=== PATIENT | female | born 1965 | race Two or more races ===

== ENCOUNTER 2017-12-18 22:38 | Emergency (ER) | payer MEDICAID ==
[~2017-12-18] VITALS: Ht 157.5 cm; Wt 89.4 kg
[~2017-12-18 22:38] MED LIST: IBUPROFEN600 MG ORAL; NAPROSYN500 M1 ORAL; NKM; NORCO 5-325 TA1 EACH ORAL; OMEPRAZOLE40 M1 ORAL; PREDNISONE20 MG ORAL; RANITIDINE HCL150 MG ORAL; VOLTAREN100 G1 TP
[2017-12-18 23:10] VITALS: BP 95/55
[2017-12-18] MEDS ORDERED: Norco 5mg/325mg tab ORAL ONE (23:15)
[2017-12-18] MEDS ORDERED: PREDNISONE20 MG ORAL (23:18)
[2017-12-18] MEDS ORDERED: HYDROCODON-ACE1 EA15 ORAL (23:18)
[2017-12-18] MEDS ORDERED: IBUPROFEN600 MG ORAL (23:18)
--- NOTE | 2017-12-18 23:18 | Emergency Room Report ---
History of Present Illness General Chief Complaint: Neck Pain Source: Patient Present Illness HPI Is a 52-year-old female with no significant past medical history. She has a history of chronic neck pain and the last week or so complaining neck pain with left arm numbness. She had an MRI done earlier today. He has not been read yet. Because of her numbness her doctor told to go to the ER. Pain is 9 out of 10. Worse with movement of her neck. No fever chills but no focal deficit. No focal deficit. No incontinence of bowel or urine. No fever chills but no trauma. Allergies: Coded Allergies: No Known Allergies (Unverified , 09/08/13) Patient History Past Medical History: see triage record, old chart reviewed Past Surgical History: other Pertinent Family History: none Social History: Denies: smoking Last Menstrual Period: unk Now: No Immunizations: other Reviewed Nursing Documentation: PMH: Agreed; PSxH: Agreed Nursing Documentation-PMH Hx Diabetes: Yes Review of Systems Eye: Denies: eye pain, blurred vision ENT: Denies: ear pain, nose congestion, throat swelling Respiratory: Denies: cough, shortness of breath Cardiovascular: Denies: chest pain, palpitations Gastrointestinal: Denies: abdominal pain, diarrhea, nausea, vomiting Musculoskeletal: Denies: back pain, joint pain Skin: Denies: rash Neurological: Denies: headache, numbness Endocrine: Denies: increased thirst, increased urine Hematologic/Lymphatic: Denies: easy bruising All Other Systems: negative except mentioned in HPI Physical Exam Vital Signs Date Time Temp Pulse Resp B/P (MAP) Pulse Ox O2 Delivery O2 Flow Rate FiO2 12/18/17 22:47 97.9 76 18 95/55 98 Room Air 97.9 vitals unremarkable Sp02 EP Interpretation: reviewed, normal General Appearance: well appearing, no apparent distress, alert Head: normocephalic, atraumatic Eyes: bilateral eye PERRL, bilateral eye EOMI ENT: hearing grossly normal, normal pharynx Neck: full range of motion, supple, no meningismus Respiratory: chest non-tender, lungs clear, normal breath sounds Cardiovascular #1: regular rate, rhythm, no murmur Gastrointestinal: normal bowel sounds, non tender, no mass, no organomegaly, no bruit, non-distended Musculoskeletal: back normal, gait/station normal, normal range of motion Psychiatric: mood/affect normal Skin: warm/dry Medical Decision Making Diagnostic Impression: Primary Impression: Cervical radiculopathy, acute ER Course Patient with cervical radiculopathy and paresthesia. We'll put her on a course of steroid and pain medication. She will need a referral to see a marketing data specialist. She may need surgical evaluation but nothing emergent in the ER. No evidence of cauda equina syndrome, spinal epidural abscess or neoplastic process. Last Vital Signs Date Time Temp Pulse Resp B/P (MAP) Pulse Ox O2 Delivery O2 Flow Rate FiO2 12/18/17 23:14 97.9 12/18/17 22:47 76 18 95/55 98 Room Air Status: unchanged Disposition: HOME, SELF-CARE Condition: Stable Scripts Prednisone* (PREDNISONE*) 20 Mg Tablet 60 MG ORAL DAILY, #12 TAB Prov: ROSALIO COOK M.D. 12/18/17 Ibuprofen* (MOTRIN*) 600 Mg Tablet 600 MG ORAL THREE TIMES A DAY, #30 TAB 0 Refills Prov: ROSALIO COOK M.D. 12/18/17 Hydrocodone/Acetaminophen 5-325* (HYDROCODONE/ACETAMINOPHEN 5-325*) 1 Each Tablet 1 TAB ORAL Q6H PRN for For Pain, #20 TAB 0 Refills Prov: ROSALIO COOK M.D. 12/18/17 Additional Instructions: Follow-up with your doctor in a week. Give report of MRI to your doctor. You may need a referral to see a marketing data specialist. Return if symptom worsen. ROSALIO COOK M.D. Dec 18, 2017 23:18
[2017-12-18 23:24] VITALS: BP 95/55
== END 2017-12-18 23:24 | disposition home or self-care (01) ==
LOC: EMR 23:08
DX: M54.12 Radiculopathy, cervical region (principal); R20.2 Paresthesia of skin; M54.2 Cervicalgia; E11.9 Type 2 diabetes mellitus without complications
CPT/HCPCS: 99283; J7512

== ENCOUNTER 2018-01-20 23:18 | Emergency (ER) | payer MEDICAID ==
[~2018-01-20] VITALS: Ht 157.5 cm; Wt 81.2 kg
[~2018-01-20 23:18] MED LIST changes: +HYDROCODON-ACE1 EA15 ORAL
[2018-01-20 23:45] VITALS: BP 123/74
[2018-01-21 00:16] VITALS: BP 123/74
[2018-01-21 00:22] LABS: APPEARANCE,URINE CLEAR; BILIRUBIN, URINE NEGATIVE (NEGATIVE); COLOR,URINE PALE YELLOW; GLUCOSE, URINE (UA) NEGATIVE (NEGATIVE); KETONES,URINE NEGATIVE (NEGATIVE); LEUKOCYTE ESTERASE ,URINE NEGATIVE (NEGATIVE); NITRITE,URINE NEGATIVE (NEGATIVE); PH,URINE 5 (4.5-8.0); PROTEIN,URINE NEGATIVE (NEGATIVE); UROBILINOGEN,URINE NORMAL MG/DL (0.0-1.0)
[2018-01-21 00:26] LABS: EOSINOPHILS % (AUTO) 2.6 % (0.0-3.0); HEMOGLOBIN 14.2 G/DL (12.0-16.0); MEAN CORPUSCULAR VOLUME 82 FL (80-99); MONOCYTES % (AUTO) 7.5 % (1.0-10.0); NEUTROPHILS % (AUTO) 49.9 % (45.0-75.0); PLATELET COUNT 205 K/UL (150-450); RED BLOOD COUNT 5.15 M/UL (4.20-5.40); RED CELL DISTRIBUTION WIDTH 12.2 % (11.6-14.8); WHITE BLOOD COUNT 6.8 K/UL (4.8-10.8)
[2018-01-21 00:35] LABS: ANION GAP 10 mmol/L (5-15); BLOOD UREA NITROGEN 19 mg/dL (7-18); CALCIUM 9.6 MG/DL (8.5-10.1); CARBON DIOXIDE 27 MMOL/L (21-32); CHLORIDE 102 MMOL/L (98-107); CREATININE 0.8 MG/DL (0.55-1.30); POTASSIUM 3.6 MMOL/L (3.5-5.1); SODIUM 139 MMOL/L (136-145)
[2018-01-21 00:39] LABS: ALANINE AMINOTRANSFERASE 27 U/L (12-78); ALKALINE PHOSPHATASE 80 U/L (46-116); ASPARTATE AMINO TRANSFERASE 16 U/L (15-37); BILIRUBIN,TOTAL 0.3 MG/DL (0.2-1.0)
[2018-01-21 01:36] VITALS: BP 112/78
[2018-01-21] MEDS ORDERED: Ketorolac 30mg Inj IV ONE (01:45)
[2018-01-21] MEDS ORDERED: Morphine Sulfate 4mg/ml Inj (IV/IM USE ONLY) IVP ONE ×2 (01:45)
[2018-01-21] MEDS ORDERED: Ketorolac 30mg Inj ONE (01:46)
[2018-01-21] MEDS ORDERED: IBUPROFEN600 MG ORAL (01:53)
--- NOTE | 2018-01-21 01:53 | Emergency Room Report ---
History of Present Illness General Chief Complaint: Abdominal Pain Source: Patient Present Illness HPI Is a 52-year-old female with history of diabetes and thyroid cancer status post thyroidectomy. She presents with chief complaint abdominal pain and bloating. Onset today. No nausea no vomiting. Pain is mostly in the left upper quadrant area and radiate to the back and front. No fever chills but no nausea no vomiting. No diarrhea. Pain is 8 out of 10. [place] spasming in nature. Comes and go. Never had this problem before. No rash. Allergies: Coded Allergies: No Known Allergies (Unverified , 09/08/13) Patient History Past Medical History: see triage record, old chart reviewed, DM, other - thyroid cancer Past Surgical History: other - thyroidectomy Pertinent Family History: none Social History: Denies: smoking Last Menstrual Period: 01/17/18 Now: No : 5 Para: 2 Immunizations: other Reviewed Nursing Documentation: PMH: Agreed; PSxH: Agreed Nursing Documentation-PMH Past Medical History: No History, Except For Hx Diabetes: Yes Hx Cancer: Yes - thyroid Review of Systems Eye: Denies: eye pain, blurred vision ENT: Denies: ear pain, nose congestion, throat swelling Respiratory: Denies: cough, shortness of breath Cardiovascular: Denies: chest pain, palpitations Gastrointestinal: Reports: abdominal pain; Denies: diarrhea, nausea, vomiting Musculoskeletal: Denies: back pain, joint pain Skin: Denies: rash Neurological: Denies: headache, numbness Endocrine: Denies: increased thirst, increased urine Hematologic/Lymphatic: Denies: easy bruising All Other Systems: negative except mentioned in HPI Physical Exam Vital Signs Date Time Temp Pulse Resp B/P (MAP) Pulse Ox O2 Delivery O2 Flow Rate FiO2 01/20/18 23:33 97.9 60 16 128/82 99 Room Air 97.9 vitals normal Sp02 EP Interpretation: reviewed, normal General Appearance: well appearing, no apparent distress, alert Head: normocephalic, atraumatic Eyes: bilateral eye PERRL, bilateral eye EOMI ENT: hearing grossly normal, normal pharynx Neck: full range of motion, supple, no meningismus Respiratory: chest non-tender, lungs clear, normal breath sounds Cardiovascular #1: regular rate, rhythm, no murmur Gastrointestinal: normal bowel sounds, no mass, no organomegaly, no bruit, non- distended, tenderness - mild tenderness to the left upper quadrant Musculoskeletal: back normal, gait/station normal, normal range of motion Psychiatric: mood/affect normal Skin: warm/dry Medical Decision Making Diagnostic Impression: Primary Impression: Abdominal pain Qualified Codes: R10.12 - Left upper quadrant pain Additional Impression: Pulmonary nodules ER Course Patient with abdominal pain. I do not see any rash indicate shingles. This could be radicular pain from her back. CT scan showed question of mild pericholecystic inflammatory changes. Labs/LFTs are normal. No evidence of any right upper quadrant pain. We'll have patient follow-up on the pulmonary nodules. No evidence of infection in the lung. She has no cough or congestion. No evidence of acute abdomen. We'll discharge home. Lab Results Impression labs normal CT/MRI/US Diagnostic Results CT/MRI/US Diagnostic Results : Imaging Test Ordered: CT abdomen and pelvis Impression Read by radiologist. Questionable mild pericholecystic inflammatory changes. No gallstones seen on CT. Pulmonary nodules. Appendix is normal. Last Vital Signs Date Time Temp Pulse Resp B/P (MAP) Pulse Ox O2 Delivery O2 Flow Rate FiO2 01/21/18 01:47 97.6 01/21/18 01:36 57 23 112/78 100 Room Air Status: improved Disposition: HOME, SELF-CARE Condition: Stable Scripts Ibuprofen* (MOTRIN*) 600 Mg Tablet 600 MG ORAL THREE TIMES A DAY, #30 TAB 0 Refills Prov: Blake Rossi MD 01/21/18 Referrals: [facility],REFERRING (PCP) Patient Instructions: Abdominal Pain, Adult Additional Instructions: Follow-up with your DrJeni in 2-3 days of not better. Return if symptom worsen. You have pulmonary nodules. This is a nonspecific finding. Will need follow- up in the future with your primary care doctor. Blake Rossi MD Jan 21, 2018 01:53
[2018-01-21 02:00] VITALS: BP 102/53
--- NOTE | 2018-01-21 09:37 | Diagnostic Imaging Report ---
Indication: Abdominal pain Technique: Continuous helical transaxial imaging of the abdomen and pelvis was obtained from the lung bases to the pubic symphysis. No intravenous contrast was administered. Coronal 2-D reformats were also obtained. Automatic Exposure Control was utilized. Total Dose length Product (DLP): 1030.[address] Dose Index Volume (CTDIvol): 19.28 mGy Comparison: none Findings: The lung bases are clear. No gallstones are identified. There is no definite inflammation identified in the pericholecystic region although the preliminary report suggested this possibility. Please correlate clinically and obtain ultrasound if needed for further evaluation. The appendix is normal. Minimal mural calcification of the aorta demonstrated. There is no nephrolithiasis or hydronephrosis identified. The bladder is unremarkable. Intrauterine device noted. IMPRESSION: No acute findings appreciated. IUD. Preliminary reading by statrad suggest the possibility of cholecystitis. Please correlate clinically. Evaluation with ultrasound may be of benefit as warranted clinically. The CT scanner at [facility] is accredited by the [employer] and the scans are performed using dose optimization techniques as appropriate to a performed exam including Automatic Exposure control.
== END 2018-01-21 02:00 | disposition home or self-care (01) ==
LOC: EMR 23:29
DX: R10.12 Left upper quadrant pain (principal); R91.8 Other nonspecific abnormal finding of lung field; E11.9 Type 2 diabetes mellitus without complications; Z85.850 Personal history of malignant neoplasm of thyroid
CPT/HCPCS: 36415; 74176; 80053; 81003; 83690; 85025; 96361; 96374; 96375; 96376; 99284; J1885; J2270; J2405

== ENCOUNTER 2018-10-28 13:03 | Outpatient (CLI) | payer MEDICAID ==
[~2018-10-28 13:03] MED LIST changes: +LEVOTHYROXINE125 MCG ORAL
[2018-10-28 13:30] VITALS: BP 98/66
--- NOTE | 2018-10-28 13:53 | General Progress Note ---
Assessment/Plan Problem List: (1) Colon polyps ICD Codes: K63.5 - Polyp of colon SNOMED: 58250722 Assessment/Plan: plan repeat colonoscopy in 5 years Subjective ROS Limited/Unobtainable: Yes Allergies: Coded Allergies: No Known Allergies (Unverified , 09/08/13) Objective General Appearance: alert EENT: normal ENT inspection Neck: supple Cardiovascular: normal peripheral pulses Respiratory/Chest: decreased breath sounds Abdomen: normal bowel sounds, non tender, soft Extremities: non-tender Sanjeev Padron MD Oct 28, 2018 13:53
== END 2018-10-28 15:38 | disposition home or self-care (01) ==
LOC: PAN 13:03
DX: K63.5 Polyp of colon (principal)
CPT/HCPCS: 99212

== ENCOUNTER 2019-04-18 02:37 | Emergency (ER) | payer MEDICAID ==
[~2019-04-18] VITALS: Ht 160 cm; Wt 86.2 kg
[2019-04-18 03:05] VITALS: BP 120/79
[2019-04-18] MEDS ORDERED: LACTULOSE20 GM/301 ORAL (03:05)
--- NOTE | 2019-04-18 03:05 | NUR ---
ED Nurse Note: Patient walked in to ER c/o constipation x 3-4 days. Patient prsesnted anxious, crying, AAO x4, VSS at this time.
--- NOTE | 2019-04-18 03:07 | Emergency Room Report ---
History of Present Illness General Chief Complaint: Constipation Source: Patient Present Illness HPI This is a 54-year-old female with history of diabetes and thyroid cancer status post thyroidectomy. She presents with complaint of constipation. Started around 7 PM. She had a small bowel movement this morning. She felt the urge to go have a bowel movement but cannot get it out. She says is very hard stool there. No fever chills. No nausea no vomiting. Pain with urge to have bowel movement. Localized to the rectal area. Similar symptom in the past. No recent pain medication. Allergies: Coded Allergies: No Known Allergies (Unverified , 09/08/13) Patient History Past Medical History: see triage record, old chart reviewed, DM Past Surgical History: other Pertinent Family History: none Social History: Denies: smoking Now: No Immunizations: other Reviewed Nursing Documentation: PMH: Agreed; PSxH: Agreed Nursing Documentation-PMH Past Medical History: No History, Except For Hx Diabetes: Yes Hx Cancer: Yes - thyroid CA Hx Gastrointestinal Problems: Yes Hx Neurological Problems: Yes - Hypothyroidism Review of Systems Eye: Denies: eye pain, blurred vision ENT: Denies: ear pain, nose congestion, throat swelling Respiratory: Denies: cough, shortness of breath Cardiovascular: Denies: chest pain, palpitations Gastrointestinal: Reports: constipation; Denies: abdominal pain, diarrhea, nausea, vomiting Musculoskeletal: Denies: back pain, joint pain Skin: Denies: rash Neurological: Denies: headache, numbness Endocrine: Denies: increased thirst, increased urine Hematologic/Lymphatic: Denies: easy bruising All Other Systems: negative except mentioned in HPI Physical Exam Vital Signs Date Time Temp Pulse Resp B/P (MAP) Pulse Ox O2 Delivery O2 Flow Rate FiO2 04/18/19 02:46 97.7 76 18 120/79 (93) 97 Room Air Vitals normal Sp02 EP Interpretation: reviewed, normal General Appearance: well appearing, no apparent distress, alert Head: normocephalic, atraumatic Eyes: bilateral eye PERRL, bilateral eye EOMI ENT: hearing grossly normal, normal pharynx Neck: full range of motion, supple, no meningismus Respiratory: chest non-tender, lungs clear, normal breath sounds Cardiovascular #1: regular rate, rhythm, no murmur Gastrointestinal: normal bowel sounds, non tender, no mass, no organomegaly, no bruit, non-distended Rectal: other - Large stool in the rectal vault Musculoskeletal: back normal, normal range of motion, gait/station normal Psychiatric: mood/affect normal Medical Decision Making Diagnostic Impression: Primary Impression: Constipation Qualified Codes: K59.00 - Constipation, unspecified ER Course Patient presents with constipation. I tried disimpaction but patient would not tolerate it. I gave her a Fleet enema. She has several large BMs. No evidence of any obstruction or acute abdomen. Will discharge home. Last Vital Signs Date Time Temp Pulse Resp B/P (MAP) Pulse Ox O2 Delivery O2 Flow Rate FiO2 04/18/19 02:46 97.7 76 18 120/79 (93) 97 Room Air Status: improved Disposition: HOME, SELF-CARE Condition: Stable Scripts Lactulose (LACTULOSE*) 20 Gm/30 Ml Solution 30 ML ORAL DAILY for constipation, #240 ML 0 Refills Prov: Blake Rossi MD 04/18/19 Patient Instructions: Constipation, Adult Additional Instructions: Increase fluids. Increase fiber. Follow-up with your doctor in 7 days. Return if symptoms worsen. Blake Rossi MD Apr 18, 2019 03:07
[2019-04-18] MEDS ORDERED: Fleet's Enema 133ml RECTAL ONE ×2 (03:15)
[2019-04-18 03:45] VITALS: BP 120/79
--- NOTE | 2019-04-18 03:45 | NUR ---
ED Nurse Note: Pt cleared by health care Provider for discharge. DC instructions/prescription was given and explained to pt and verbalized understanding of teachings. All medical deviecs such as ID band removed. Pt is AAO x4, ambulatory and left with all personal belongings.
== END 2019-04-18 03:45 | disposition home or self-care (01) ==
LOC: EMR 03:38
DX: K59.00 Constipation, unspecified (principal); E11.9 Type 2 diabetes mellitus without complications; Z85.850 Personal history of malignant neoplasm of thyroid; E89.0 Postprocedural hypothyroidism; E03.9 Hypothyroidism, unspecified
CPT/HCPCS: 99284

== ENCOUNTER 2019-05-14 10:35 | Emergency (ER) | payer MEDICAID ==
[~2019-05-14] VITALS: Ht 160 cm; Wt 86.2 kg
[~2019-05-14 10:35] MED LIST changes: +LACTULOSE20 GM/301 ORAL
--- NOTE | 2019-05-14 10:51 | NUR ---
ED Nurse Note: PT FROM HOME CAME IN DUE TO ABD PAIN X 2 WEEKS. DENIES N/V/D. CALM AND COOPERATIVE AAO X4 AND AMBULATORY.
[2019-05-14 11:00] VITALS: BP 112/67
--- NOTE | 2019-05-14 11:04 | Emergency Room Report ---
History of Present Illness General Chief Complaint: Abdominal Pain Source: Patient Present Illness HPI Patient presents with complaints of epigastric discomfort reports that she was previously constipated and used an enema she noticed that her stool was Brown and had some areas of mild darker brown region to it Patient had ultrasound as an outpatient basis 2 days ago And is following closely with outpatient doctor Denies any chest pain or shortness of breath Denies any back or flank pain denies any fall or trauma Denies any rosana blood in the stool Pain epigastric mild discomfort 2 out of 10 Allergies: Coded Allergies: No Known Allergies (Unverified , 09/08/13) Patient History Past Medical History: see triage record Last Menstrual Period: in 2018 Now: No Reviewed Nursing Documentation: PMH: Agreed; PSxH: Agreed Nursing Documentation-PMH Past Medical History: No History, Except For Hx Diabetes: Yes Hx Cancer: Yes - thyroid CA Hx Gastrointestinal Problems: Yes Hx Neurological Problems: Yes - Hypothyroidism Review of Systems All Other Systems: negative except mentioned in HPI Physical Exam Vital Signs Date Time Temp Pulse Resp B/P (MAP) Pulse Ox O2 Delivery O2 Flow Rate FiO2 05/14/19 10:41 98.1 71 21 107/68 (81) 96 Room Air Sp02 EP Interpretation: reviewed, normal General Appearance: well appearing, no apparent distress Head: normocephalic, atraumatic Eyes: bilateral eye PERRL, bilateral eye EOMI ENT: hearing grossly normal, normal pharynx, TMs + canals normal, uvula midline Neck: full range of motion, supple, no meningismus, no bony tend Respiratory: lungs clear, normal breath sounds, no rhonchi, no respiratory distress, no retraction, no accessory muscle use Cardiovascular #1: normal peripheral pulses, regular rate, rhythm, no edema, no gallop, no JVD, no murmur Gastrointestinal: normal bowel sounds, non tender - However points to epigastric region for discomfort, soft, no mass, no organomegaly, non-distended , no guarding, no hernia, no pulsatile mass, no rebound Genitourinary: no CVA tenderness Musculoskeletal: normal inspection Neurologic: motor strength/tone normal, education assistant III-XII nml as tested, oriented x3 , sensory intact, responsive Psychiatric: mood/affect normal Skin: no rash Lymphatic: normal inspection, no adenopathy Medical Decision Making Diagnostic Impression: Primary Impression: Abdominal pain ER Course With the history exam and presentation, multiple differentials considered, including but not limited to appendicitis, gastritis, cholecystitis, diverticulitis Patient's blood work is at baseline levels patient has been having extensive outpatient work-up including ultrasound That she will be following with the primary physician I did not feel patient met emergency criteria for repeat imaging Patient symptoms are possibly related to medication reaction, possible gastric etiology Patient has educated regarding bland diet for the next several days and return with any worrisome changes Labs Test 05/14/19 11:05 White Blood Count 5.5 K/UL (4.8-10.8) Red Blood Count 4.93 M/UL (4.20-5.40) Hemoglobin 13.8 G/DL (12.0-16.0) Hematocrit 41.4 % (37.0-47.0) Mean Corpuscular Volume 84 FL (80-99) Mean Corpuscular Hemoglobin 27.9 PG (27.0-31.0) Mean Corpuscular Hemoglobin Concent 33.2 G/DL (32.0-36.0) Red Cell Distribution Width 12.3 % (11.6-14.8) Platelet Count 175 K/UL (150-450) Mean Platelet Volume 8.2 FL (6.5-10.1) Neutrophils (%) (Auto) 46.9 % (45.0-75.0) Lymphocytes (%) (Auto) 44.1 % (20.0-45.0) Monocytes (%) (Auto) 5.4 % (1.0-10.0) Eosinophils (%) (Auto) 2.6 % (0.0-3.0) Basophils (%) (Auto) 1.0 % (0.0-2.0) Sodium Level 144 MMOL/L (136-145) Potassium Level 3.9 MMOL/L (3.5-5.1) Chloride Level 107 MMOL/L (98-107) Carbon Dioxide Level 28 MMOL/L (21-32) Anion Gap 9 mmol/L (5-15) Blood Urea Nitrogen 15 mg/dL (7-18) Creatinine 0.7 MG/DL (0.55-1.30) Estimat Glomerular Filtration Rate > 60 mL/min (>60) Glucose Level 104 MG/DL (74-106) Calcium Level 9.4 MG/DL (8.5-10.1) Total Bilirubin 0.5 MG/DL (0.2-1.0) Aspartate Amino Transf (AST/SGOT) 11 U/L (15-37) Alanine Aminotransferase (ALT/SGPT) 26 U/L (12-78) Alkaline Phosphatase 68 U/L (46-116) Total Protein 7.5 G/DL (6.4-8.2) Albumin 4.0 G/DL (3.4-5.0) Globulin 3.5 g/dL Albumin/Globulin Ratio 1.1 (1.0-2.7) Lipase 124 U/L (73-393) Last Vital Signs Date Time Temp Pulse Resp B/P (MAP) Pulse Ox O2 Delivery O2 Flow Rate FiO2 05/14/19 10:51 71 21 Room Air 05/14/19 10:41 98.1 107/68 (81) 96 Status: improved Disposition: HOME, SELF-CARE Condition: Improved Scripts Famotidine* (Pepcid 20mg tablet*) 20 Mg Tablet 20 MG ORAL DAILY, #20 TAB 0 Refills Prov: Maria E Jaimes DO 05/14/19 Referrals: NON PHYSICIAN (PCP) Additional Instructions: Patient is provided with the discharge instructions notified to follow up with primary doctor in the next 2-3 days otherwise return to the er with any worsening symptoms. Please note that this report is being documented using [employer] technology. This can lead to erroneous entry secondary to incorrect interpretation by the dictating instrument. Maria E Jaimes DO May 14, 2019 11:03
--- NOTE | 2019-05-14 11:07 | NUR ---
ED Nurse Note: BLOOD SPECIMEN COLLECTED THEN SENT.
[2019-05-14 11:20] LABS: EOSINOPHILS % (AUTO) 2.6 % (0.0-3.0); HEMATOCRIT 41.4 % (37.0-47.0); HEMOGLOBIN 13.8 G/DL (12.0-16.0); LYMPHOCYTES % (AUTO) 44.1 % (20.0-45.0); MEAN CORPUSCULAR VOLUME 84 FL (80-99); MONOCYTES % (AUTO) 5.4 % (1.0-10.0); NEUTROPHILS % (AUTO) 46.9 % (45.0-75.0); PLATELET COUNT 175 K/UL (150-450); RED BLOOD COUNT 4.93 M/UL (4.20-5.40); RED CELL DISTRIBUTION WIDTH 12.3 % (11.6-14.8); WHITE BLOOD COUNT 5.5 K/UL (4.8-10.8)
[2019-05-14 11:33] LABS: ANION GAP 9 mmol/L (5-15); BLOOD UREA NITROGEN 15 mg/dL (7-18); CALCIUM 9.4 MG/DL (8.5-10.1); CARBON DIOXIDE 28 MMOL/L (21-32); CHLORIDE 107 MMOL/L (98-107); CREATININE 0.7 MG/DL (0.55-1.30); POTASSIUM 3.9 MMOL/L (3.5-5.1); SODIUM 144 MMOL/L (136-145)
[2019-05-14 11:37] LABS: ALANINE AMINOTRANSFERASE 26 U/L (12-78); ALBUMIN/GLOBULIN RATIO 1.1 (1.0-2.7); ALKALINE PHOSPHATASE 68 U/L (46-116); ASPARTATE AMINO TRANSFERASE 11 U/L (15-37); BILIRUBIN,TOTAL 0.5 MG/DL (0.2-1.0)
[2019-05-14] MEDS ORDERED: FAMOTIDINE20 MG ORAL (12:06)
[2019-05-14 12:12] VITALS: BP 115/74
--- NOTE | 2019-05-14 12:12 | NUR ---
ER DISCHARGE NOTE: Patient is cleared to be discharged per ERMD, pt is aox4, on room air, with stable vital signs. pt was given dc and prescription instructions, pt was able to verbalize understanding, pt id band removed. pt is able to ambulate with steady gait. pt took all belongings.
== END 2019-05-14 12:12 | disposition home or self-care (01) ==
LOC: EMR 11:00
DX: R10.13 Epigastric pain (principal); E11.9 Type 2 diabetes mellitus without complications; Z85.850 Personal history of malignant neoplasm of thyroid; E03.9 Hypothyroidism, unspecified
CPT/HCPCS: 36415; 80053; 83690; 85025; Z7502; 99284